=== PATIENT | male | born 1990 | race Caucasian/White ===

== ENCOUNTER 2018-04-11 16:34 | Emergency (ER) | payer OTHER ==
[~2018-04-11] VITALS: Ht 182.9 cm; Wt 86.2 kg
[~2018-04-11 16:34] MED LIST: CYCL10 PO; Crutch1 EACH MISC; DIPH50 PO; HYDACE5 PO; IBUP800 PO; NAPR500 PO; PRED20 PO
[2018-04-11 17:03] LABS: Source, Urine Clean Catch
[2018-04-11 17:21] LABS: Appearance, Urine Hazy (Clear); Bilirubin, Urine Neg (Neg); Blood, Urine 5+ (Neg); Color, Urine Yellow (P-Yellow); Glucose Qualitative, Urine Neg (Neg); Ketones, Urine Neg (Neg); Leukocyte Esterase, Urine 3+ (Neg); Nitrite, Urine Neg (Neg); Protein, Urine 1+ (Neg); Specific Gravity, Urine 1.005 (1.003-1.022); Urobilinogen, Urine NORM (Normal); pH, Urine 6.5 (5.0-8.0)
[2018-04-11] MEDS ORDERED: Cipro500 MG PO (17:30)
[2018-04-11 17:35] LABS: White Blood Cells, Urine TNTC /hpf (0-5)
[2018-04-11 17:39] LABS: Bacteria Mod /hpf; Squamous Epithelial Cells Not Seen /hpf (Few)
[2018-04-13 18:07] LABS: CHLAMYDIA TRACHOMATIS, NAA Negative (Negative); NEISSERIA GONORRHOEAE, NAA Positive (Negative)
== END 2018-04-11 17:40 | disposition home or self-care (01) ==
LOC: ER 16:34
PROVIDERS: Physician Assistant
DX: N39.0 Urinary tract infection, site not specified (principal); F17.200 Nicotine dependence, unspecified, uncomplicated
CPT/HCPCS: 81001; 87086; 87491; 87591; 99283

== ENCOUNTER 2025-08-16 09:07 | Day surgery (SDC) | payer OTHER ==
[~2025-08-16] VITALS: Ht 182.9 cm; Wt 105.0 kg
[~2025-08-16 09:07] MED LIST changes: +Cipro500 MG PO; +IBU800 MG PO
[2025-08-16 09:31] VITALS: BP 145/89
[2025-08-16] MEDS ORDERED: Heparin Sodium 1000 Units/ML 10ML MDV ONE (12:20)
[2025-08-16] MEDS ORDERED: NS 1,000 ML IV ONE (12:20)
[2025-08-16] MEDS ORDERED: Midazolam HCl 1MG / ML 2ML Vial ONE (12:33)
[2025-08-16] MEDS ORDERED: NS 500 ML IV ONE (12:34)
[2025-08-16] MEDS ORDERED: FentaNYL Citrate 50 MCG/ML 2 ML Injection ONE (12:34)
[2025-08-16 13:18] VITALS: BP 134/96
[2025-08-16 13:30] VITALS: BP 132/88
--- NOTE | 2025-08-16 13:38 | NUR ---
PT VERBALIZED UNERSTANDING OF WRITTEN AND VERBAL D/C INST. IV REMOVED. PT WILL BE TAKEN OUT OF THE DEPARTMENT VIA W/C.
== END 2025-08-16 14:00 | disposition home or self-care (01) ==
LOC: MHTC 09:07
DX: Z45.89 Encounter for adjustment and management of other implanted devices (principal); Z86.718 Personal history of other venous thrombosis and embolism; Z95.828 Presence of other vascular implants and grafts
CPT/HCPCS: 37193; 76937; 99152; C1769; C1773; C1887; C1894; J1644; J2250; J3010; J7030; J7040; Q9967

== ENCOUNTER 2025-09-02 09:59 | Day surgery (SDC) | payer OTHER ==
[~2025-09-02] VITALS: Ht 182.9 cm; Wt 106.2 kg
--- NOTE | 2025-09-02 10:38 | NUR ---
09/02/25 1038 HÉCTOR RAYA AT BEDSIDE
[2025-09-02] MEDS ORDERED: CeFAZolin Sodium 2,000 MG VIAL ONE (11:13)
[2025-09-02] MEDS ORDERED: Midazolam HCl 1MG / ML 2ML Vial ONE (11:57)
[2025-09-02] MEDS ORDERED: Bupivacaine 0.5% W/EPI 1:200000 SDV 30 ML Vial ONE (12:02)
[2025-09-02] MEDS ORDERED: FentaNYL Citrate 50 MCG/ML 2 ML Injection ONE (12:23)
[2025-09-02] MEDS ORDERED: Ondansetron HCl 2 MG / ML 2ML Vial ONE (12:26)
[2025-09-02] MEDS ORDERED: Dexamethasone Sod Phos 10 MG/ML 1ML VIAL ONE (12:26)
--- NOTE | 2025-09-02 13:23 | NUR ---
09/02/25 1323 Maribel Rainey RN ASSISTED PT TO RECLINER. VSS. DENIES DIZZINES/NAUSEA/PAIN. PARTNER AT BEDSIDE.
[2025-09-02 13:55] VITALS: BP 111/66
== END 2025-09-02 13:50 | disposition home or self-care (01) ==
LOC: ORSCSDS 09:59
PROVIDERS: Orthopaedic Surgery
PROC: 0JBK0ZZ Excision of Left Hand Subcutaneous Tissue and Fascia, Open Approach (ICD-10-PCS; principal; 2025-09-02 11:15)
DX: M60.242 Foreign body granuloma of soft tissue, not elsewhere classified, left hand (principal); Z86.718 Personal history of other venous thrombosis and embolism; Z87.891 Personal history of nicotine dependence
CPT/HCPCS: J0690; J1100; J2250; J2405; J2704; J3010; J7120